=== PATIENT | female | born 1995 | race Two or more races ===

== ENCOUNTER 2022-08-17 04:05 | Emergency (ER) | payer SELFPAY ==
[~2022-08-17] VITALS: Ht 162.6 cm; Wt 59.1 kg
[2022-08-17 04:26] VITALS: BP 129/80
[2022-08-17 06:20] LABS: CLARITY URINE CLEAR (CLEAR); COLOR URINE YELLOW (YELLOW); KETONES URINE 1+ (NEGATIVE); LEUKOCYTE ESTERASE URINE 3+ (NEGATIVE); NITRITE URINE NEGATIVE (NEGATIVE); OCCULT BLOOD URINE NEGATIVE (NEGATIVE); PH URINE 6.5 (4.5-8.0); PROTEIN URINE TRACE (NEGATIVE); SPECIFIC GRAVITY URINE 1.023 (1.005-1.030); UROBILINOGEN URINE 0.2 E.U./dL (0.2-1.0)
[2022-08-17 07:59] LABS: BASOPHILS % 0.5 % (0.0-2.0); HEMATOCRIT. 30.1 % (36.0-48.0); HEMOGLOBIN. 9.2 g/dL (12.0-16.0); LYMPHOCYTES % 19.9 % (20.0-50.0); MEAN CORPUSCULAR HEMOGLOBIN 19.5 pg (28.0-32.0); MEAN CORPUSCULAR VOLUME 64.3 fL (81.0-99.0); MONOCYTES % 2.7 % (2.0-8.0); NEUTROPHILS % 75.9 % (40.0-76.0); PLATELET 360 x1000/uL (130-400); RED BLOOD CELL COUNT 4.68 mill/uL (4.2-5.4); RED CELL DISTRIBUTION WIDTH 17.3 % (11.6-14.6)
[2022-08-17 08:08] LABS: CHLORIDE 106 mEq/L (98-107)
[2022-08-17 08:31] LABS: PLATELET ESTIMATE NORMAL
[2022-08-17 08:35] LABS: B-HCG QUANTITATIVE 9027 mIU/mL (<3)
[2022-08-17] MEDS ORDERED: CEPH250C2 MT (10:01)
[2022-08-17] MEDS ORDERED: TOPUD MT (10:01)
== END 2022-08-17 10:31 | disposition home or self-care (01) ==
LOC: ER 04:23
DX: O26.892 Other specified pregnancy related conditions, second trimester (principal); Z3A.23 23 weeks gestation of pregnancy
CPT/HCPCS: 36415; 76805; 80053; 81003; 81025; 84702; 85025; 99284

== ENCOUNTER 2022-09-25 15:54 | Emergency (ER) | payer SELFPAY ==
[~2022-09-25] VITALS: Ht 167.6 cm; Wt 60.0 kg
[~2022-09-25 15:54] MED LIST: CEPH250C2 MT; TOPUD MT
[2022-09-25 16:02] VITALS: BP 116/72
[2022-09-25 18:18] LABS: CLARITY URINE CLOUDY (CLEAR); COLOR URINE YELLOW (YELLOW); KETONES URINE NEGATIVE (NEGATIVE); LEUKOCYTE ESTERASE URINE 3+ (NEGATIVE); NITRITE URINE NEGATIVE (NEGATIVE); OCCULT BLOOD URINE NEGATIVE (NEGATIVE); PROTEIN URINE 1+ (NEGATIVE); SPECIFIC GRAVITY URINE 1.027 (1.005-1.030)
[2022-09-25 18:37] LABS: *AMPHETAMINES SCREEN URINE NEGATIVE (NEGATIVE); *BARBITURATES SCREEN URINE NEGATIVE (NEGATIVE); *BENZODIAZEPINES SCREEN URINE NEGATIVE (NEGATIVE); *COCAINE SCREEN URINE NEGATIVE (NEGATIVE); CANNABINOID URINE SCREEN NEGATIVE (NEGATIVE); METHADONE URINE SCREEN NEGATIVE (NEGATIVE); OPIATES URINE SCREEN NEGATIVE (NEGATIVE); PHENCYCLIDINE URINE SCREEN NEGATIVE (NEGATIVE)
[2022-09-25 18:39] LABS: BASOPHILS % 0.3 % (0.0-2.0); EOSINOPHILS % 1.5 % (0.0-5.0); HEMATOCRIT. 25.2 % (36.0-48.0); HEMOGLOBIN. 7.8 g/dL (12.0-16.0); MEAN CORPUSCULAR HEMOGLOBIN 18.8 pg (28.0-32.0); MEAN CORPUSCULAR VOLUME 60.4 fL (81.0-99.0); MEAN PLATELET VOLUME 8.4 fl (7.4-10.4); MONOCYTES % 4.3 % (2.0-8.0); NEUTROPHILS % 76.9 % (40.0-76.0); PLATELET 308 x1000/uL (130-400); RED BLOOD CELL COUNT 4.16 mill/uL (4.2-5.4); RED CELL DISTRIBUTION WIDTH 17.8 % (11.6-14.6)
[2022-09-25 18:55] LABS: CHLORIDE 101 mEq/L (98-107)
[2022-09-25 19:18] LABS: B-HCG QUANTITATIVE 10435 mIU/mL (<3)
[2022-09-25 19:22] LABS: PLATELET ESTIMATE NORMAL
[2022-09-25] MEDS ORDERED: CEPHALEXIN 250MG CAPSULE PO ONE (19:30)
[2022-09-25] MEDS ORDERED: CEPH500C2 MT (22:57)
== END 2022-09-25 23:04 | disposition home or self-care (01) ==
LOC: ER 15:54
DX: O23.12 Infections of bladder in pregnancy, second trimester (principal); Z3A.23 23 weeks gestation of pregnancy
CPT/HCPCS: 36415; 76805; 80048; 80305; 81003; 81025; 84702; 85025; 99284

== ENCOUNTER 2022-09-26 12:50 | Observation (INO) | payer SELFPAY ==
[~2022-09-26] VITALS: Ht 154.9 cm; Wt 55.8 kg
[~2022-09-26 12:50] MED LIST changes: +CEPH500C2 MT
[2022-09-26] MEDS ORDERED: LACTATED RINGERS 1,000 ML IV SCH (14:30)
[2022-09-26] MEDS ORDERED: CEFAZOLIN 2,000 MG in DEXT 5% WATER 100 ML IV NR (15:30)
== END 2022-09-26 18:00 | disposition home or self-care (01) ==
LOC: 8 EST A/PP 12:50
PROVIDERS: ADMIT Obstetrics & Gynecology; ATTEND Obstetrics & Gynecology
DX: O26.893 Other specified pregnancy related conditions, third trimester (principal); R42 Dizziness and giddiness; R53.1 Weakness; O60.03 Preterm labor without delivery, third trimester; Z3A.31 31 weeks gestation of pregnancy
CPT/HCPCS: 59025; 96365; G0378; J0690; J7060; 96360; 99281; J7120

== ENCOUNTER 2022-09-28 23:20 | Emergency (ER) | payer MEDICAID, OTHER ==
[~2022-09-28] VITALS: Ht 162.6 cm; Wt 50.0 kg
[2022-09-28 23:54] VITALS: BP 132/60
== END 2022-09-29 04:40 | disposition home or self-care (01) ==
LOC: ER 23:20
DX: O99.893 Other specified diseases and conditions complicating puerperium (principal); Z59.02 Unsheltered homelessness; Z63.79 Other stressful life events affecting family and household; R03.0 Elevated blood-pressure reading, without diagnosis of hypertension; Z3A.00 Weeks of gestation of pregnancy not specified
CPT/HCPCS: 99283

== ENCOUNTER 2025-03-04 13:39 | Emergency (ER) | payer OTHER ==
[~2025-03-04] VITALS: Ht 165.1 cm; Wt 55.0 kg
[2025-03-04 13:42] VITALS: BP 108/76; PULSE 87; RESP 18; TEMP 37; O2SAT 100
[2025-03-04 15:31] LABS: BASOPHILS % 0.2 % (0.0-2.0); EOSINOPHILS % 1.7 % (0.0-5.0); HEMATOCRIT. 32.4 % (36.0-48.0); HEMOGLOBIN. 9.7 g/dL (12.0-16.0); LYMPHOCYTES % 16.5 % (20.0-50.0); MEAN CORPUSCULAR HEMOGLOBIN 19.7 pg (28.0-32.0); MEAN CORPUSCULAR HGB CONC 30.1 g/dL (31.0-37.0); MEAN CORPUSCULAR VOLUME 65.5 fL (81.0-99.0); MEAN PLATELET VOLUME 7.5 fl (7.4-10.4); MONOCYTES % 8.7 % (2.0-8.0); NEUTROPHILS % 72.9 % (40.0-76.0); PLATELET 513 x1000/uL (130-400); RED BLOOD CELL COUNT 4.95 mill/uL (4.2-5.4); RED CELL DISTRIBUTION WIDTH 15.7 % (11.6-14.6); WHITE BLOOD COUNT 7.9 x1000/uL (4.5-11.0)
[2025-03-04 15:36] LABS: ADD RBC MORPHOLOGY YES; DIFFERENTIAL COMMENT 1
[2025-03-04 15:37] LABS: CHLORIDE 101 mEq/L (98-107); POTASSIUM 2.9 mEq/L (3.5-5.1); SODIUM 139 mEq/L (136-145)
[2025-03-04 15:38] LABS: CALCIUM 9.7 mg/dL (8.7-10.4); CARBON DIOXIDE 31 mEq/L (21-32)
[2025-03-04 15:43] LABS: CREATININE 0.6 mg/dL (0.6-1.0); GLUCOSE 114 mg/dL (70-105); UREA NITROGEN BLOOD 11 mg/dL (9-23)
[2025-03-04 15:45] LABS: ALANINE AMINOTRANSFERASE 8 IU/L (10-49); ALBUMIN 4.2 g/dL (3.2-4.8); ASPARTATE AMINOTRANSFERASE 18 IU/L (<34); BILIRUBIN TOTAL 0.3 mg/dL (0.1-1.0)
[2025-03-04 16:38] LABS: HYPOCHROMASIA 2+; MICROCYTOSIS 3+; PLATELET ESTIMATE INCREASED
== END 2025-03-04 16:00 | disposition left against medical advice (07) ==
LOC: ER 13:39
DX: R11.2 Nausea with vomiting, unspecified (principal); Z53.21 Procedure and treatment not carried out due to patient leaving prior to being seen by health care provider
CPT/HCPCS: 36415; 80053; 85025